=== PATIENT | female | born 1995 | race Caucasian/White ===

== ENCOUNTER 2016-09-06 15:07 | Emergency (ER) | payer OTHER, BC ==
[2016-09-06 15:15] VITALS: BP 128/84
--- NOTE | 2016-09-06 15:48 | UC ---
Hand/Wrist HPI - HPI Summary HPI Summary: Pt fell on stairs 2 nights ago, not sure if she smacked hand against railing, landed on it, or grabbed onto something. Now has bruising and swelling on hand over 4th and 5th knuckles. - History Of Current Complaint Chief Complaint: UCUpperExtremity Stated Complaint: HAND INJURY Time Seen by Provider: 09/06/16 15:22 Hx Obtained From: Patient Hx Last Menstrual Period: 2.5 months ?: No Onset/Duration: Sudden Onset Severity Initially: Moderate Severity Currently: Moderate Character Of Pain: Dull, Aching Aggravating Factor(s): Movement - Allergies/Home Medications Allergies/Adverse Reactions: Allergies Allergy/AdvReac Type Severity Reaction Status Date / Time No Known Allergies Allergy Verified 09/06/16 15:15 PMH/Surg Hx/FS Hx/Imm Hx Previously Healthy: Yes - Surgical History Surgical History: Yes Surgery Procedure, Year, and Place: Bilat ear tubes, Adenoids - Family History Known Family History: Negative: Blood Disorder - Social History Occupation: Employed Part-time, Student Alcohol Use: Rare Substance Use Type: None Smoking Status (MU): Heavy Every Day Tobacco Smoker Amount Used/How Often: 1 ppd Length of Time of Smoking/Using Tobacco: 2 years Review of Systems Constitutional: Negative Skin: Bruising Eyes: Negative ENT: Negative Respiratory: Negative Cardiovascular: Negative Gastrointestinal: Negative Genitourinary: Negative Motor: Negative Neurovascular: Negative Musculoskeletal: Arthralgia Neurological: Negative Psychological: Negative All Other Systems Reviewed And Are Negative: Yes Physical Exam Triage Information Reviewed: Yes Appearance: Well-Appearing, No Pain Distress, Well-Nourished Vital Signs: Initial Vital Signs Temp 98.6 F 09/06/16 15:10 Pulse 98 09/06/16 15:10 Resp 18 09/06/16 15:10 BP 128/84 09/06/16 15:10 Pulse Ox 100 09/06/16 15:10 Vital Signs Reviewed: Yes Eye Exam: Normal Eyes: Positive: Conjunctiva Clear ENT Exam: Normal ENT: Positive: Normal ENT inspection, Hearing grossly normal, Pharynx normal, TMs normal Dental Exam: Normal Neck exam: Normal Neck: Positive: Supple, Nontender, No Lymphadenopathy Respiratory Exam: Normal Respiratory: Positive: Chest non-tender, Lungs clear, Normal breath sounds, No respiratory distress, No accessory muscle use Cardiovascular Exam: Normal Cardiovascular: Positive: RRR, No Murmur Musculoskeletal: Positive: Strength Limited @ - R clean out driller, ROM Limited @ - R hand, Other: - tender over 4th and 5th MCs Neurological Exam: Normal Neurological: Positive: Alert Psychological Exam: Normal Hand/Wrist Course/Dx - Differential Dx/Diagnosis Provider Diagnoses: R hand contusion Discharge - Discharge Plan Condition: Stable Disposition: HOME Patient Education Materials: Contusion in Adults (ED) Referrals: Cristal Sanches MD [Primary Care Provider] - If Needed Additional Instructions: Use ice, ibuprofen, and elevation as needed for pain. If you still cannot use the hand after a week, please see your primary care office or return here for care.
--- NOTE | 2016-09-06 15:55 | RAD ---
INDICATION: Right hand injury COMPARISON: None TECHNIQUE: AP, lateral, and oblique views were obtained. FINDINGS: There is no acute fracture or dislocation. There is soft tissue swelling over the dorsum of the hand. IMPRESSION: NO ACUTE FRACTURE
== END 2016-09-06 15:55 | disposition home or self-care (01) ==
LOC: UCEAST 15:07
DX: S60.221A Contusion of right hand, initial encounter (principal); W10.9XXA Fall (on) (from) unspecified stairs and steps, initial encounter; Y93.9 Activity, unspecified; Y92.9 Unspecified place or not applicable; F17.210 Nicotine dependence, cigarettes, uncomplicated
CPT/HCPCS: 99211; G0463

== ENCOUNTER 2017-04-26 19:49 | Emergency (ER) | payer OTHER, BC ==
[2017-04-26 20:04] VITALS: BP 144/71
[2017-04-26] MEDS ORDERED: Benzonatate CAP* 100 MG PO ONE (20:19)
--- NOTE | 2017-04-26 20:23 | UC ---
Throat Pain/Nasal Augusto HPI - HPI Summary HPI Summary: pateint was treated for strep and wheezing about 3 weeks ago, today she presents with severe sore thraot, wheezing, fever and cough. - History of Current Complaint Chief Complaint: UCGeneralIllness Stated Complaint: THROAT COMPLAINT Time Seen by Provider: 04/26/17 20:06 Hx Obtained From: Patient Hx Last Menstrual Period: BCP-ASHLYNA--LMP ~ 6 MOS AGO. ?: No Onset/Duration: Sudden Onset, Lasting Days Severity: Mild Cough: Nonproductive Associated Signs & Symptoms: Positive: Dysphagia, Hoarseness, Sinus Discomfort, Nasal Discharge, Fever - Epiglottits Risk Factors Epiglottis Risk Factors: Negative - Allergies/Home Medications Allergies/Adverse Reactions: Allergies Allergy/AdvReac Type Severity Reaction Status Date / Time No Known Allergies Allergy Verified 04/26/17 20:04 Home Medications: Home Medications Dextromethorphan-Phenylephrine [Daytime Multi-Symptom Col 10-5-325 mg/15Ml] 1 liq PO DAILY PRN 04/26/17 [History Confirmed 04/26/17] Ibuprofen TAB* [Motrin TAB* 800 MG] 800 mg PO Q6H PRN 04/26/17 [History Confirmed 04/26/17] Xcyunnsoazegg-Mgeobpprrf-Wvwqf [Nyquil Severe Cold/Flu 5-6.25-10-325 mg/15Ml] 1 liq PO DAILY PRN 04/26/17 [History Confirmed 04/26/17] Throat Lozenges [Menthol Cough Drops] 5 mg MT DAILY PRN 04/26/17 [History Confirmed 04/26/17] PMH/Surg Hx/FS Hx/Imm Hx Previously Healthy: Yes - Surgical History Surgical History: Yes Surgery Procedure, Year, and Place: Bilat ear tubes, Adenoids - Family History Known Family History: Negative: Blood Disorder - Social History Alcohol Use: Rare Substance Use Type: None Smoking Status (MU): Heavy Every Day Tobacco Smoker Type: Cigarettes Amount Used/How Often: 1 ppd Length of Time of Smoking/Using Tobacco: 5 years Review of Systems Constitutional: Fever Skin: Negative Eyes: Negative ENT: Sore Throat, Ear Ache, Nasal Discharge, Sinus Congestion, Sinus Pain/ Tenderness Respiratory: Shortness Of Breath, Cough Cardiovascular: Negative Gastrointestinal: Negative Genitourinary: Negative Motor: Negative Neurovascular: Negative Musculoskeletal: Negative Neurological: Negative Psychological: Negative All Other Systems Reviewed And Are Negative: Yes Physical Exam Triage Information Reviewed: Yes Appearance: Ill-Appearing, Pain Distress, Obese Vital Signs: Initial Vital Signs Temp 100.7 F 04/26/17 19:55 Pulse 128 04/26/17 19:55 Resp 20 04/26/17 19:55 BP 144/71 04/26/17 19:55 Pulse Ox 100 04/26/17 19:55 Vital Signs Reviewed: Yes Eye Exam: Normal ENT: Positive: Pharyngeal erythema, Nasal congestion, TM dull, TM red, Tonsillar swelling, Tonsillar exudate Dental Exam: Normal Neck exam: Normal Neck: Positive: Enlarged Nodes @ - bilateral cervical Respiratory: Positive: Chest non-tender, No respiratory distress, No accessory muscle use, Wheezing, Inspiration Cardiovascular Exam: Normal Cardiovascular: Positive: No Murmur, Pulses Normal, Tachycardia Abdominal Exam: Normal Abdomen Description: Positive: Nontender, No Organomegaly, Soft Bowel Sounds: Positive: Present Musculoskeletal Exam: Normal Neurological Exam: Normal Psychological Exam: Normal Skin Exam: Normal Throat Pain/Nasal Course/Dx - Course Course Of Treatment: hx obtained, exam performed ,meds reviewed, rapid strep obtained, - Differential Dx/Diagnosis Differential Diagnosis/HQI/PQRI: Laryngitis, Otitis Media, Pharyngitis, Sinusitis, Tonsillitis, URI Provider Diagnoses: pharynigitis. sinusitis Discharge - Discharge Plan Condition: Stable Disposition: HOME Prescriptions: Albuterol HFA INHALER* [Ventolin HFA Inhaler*] 2 puff INH Q4H PRN #1 mdi PRN Reason: Wheezing Cephalexin CAP* [Keflex CAP*] 500 mg PO BID #13 cap predniSONE TAB* [Deltasone TAB*] 40 mg PO DAILY #10 tab Patient Education Materials: Sinusitis (ED) Forms: *Work Release Referrals: Cristal Sanches MD [Primary Care Provider] -
[2017-04-26] MEDS ORDERED: Cephalexin CAP* 500 MG PO ONE (20:27)
== END 2017-04-26 20:37 | disposition home or self-care (01) ==
LOC: UCCORT 19:49
DX: J02.9 Acute pharyngitis, unspecified (principal); J32.9 Chronic sinusitis, unspecified
CPT/HCPCS: 87651; 99212; A9270-GY; G0463

== ENCOUNTER 2020-11-12 13:21 | Inpatient (IN) ==
[2020-11-12] MEDS ORDERED: Buffered Lidocaine 1% SYRIN 1 ml INTRADERM ONE (14:30)
[2020-11-12] MEDS ORDERED: Lactated Ringers 1000 ml BAG 1,000 ML IV ONE ×2 (14:30→22:52)
[2020-11-12] MEDS ORDERED: Oxytocin in LR 20 UNITS/1,000 ML BAG IVPB SCH (15:00)
[2020-11-12] MEDS ORDERED: Lactated Ringers 1000 ml BAG 1,000 ML IV SCH ×3 (15:00→23:00)
[2020-11-12 15:18] LABS: ABS Eosinophils 0.1 10^3/ul (0-0.6); ABS Lymphocytes 1.9 10^3/ul (1.0-4.8); ABS Monocytes 0.7 10^3/ul (0-0.8); ABS Neutrophils 10.6 10^3/ul (1.5-7.7); Hematocrit 38 % (35-47); Hemoglobin 13.2 g/dL (12.0-16.0); Mean Corpuscular HGB Conc 35 g/dL (31-36); Mean Corpuscular Hemoglobin 30 pg (27-31); Mean Corpuscular Volume 85 fL (80-97); Mean Platelet Volume 8.7 fL (7.4-10.4); Platelet Count 426 10^3/uL (150-450); Red Blood Count 4.44 10^6 /uL (3.70-4.87); Red Cell Distribution Width 14 % (10-15); White Blood Count 13.3 10^3/uL (3.5-10.8)
[2020-11-12 15:55] LABS: Urine Benzodiazepine Screen None Detected (None Detect); Urine Cannabinoids Screen None Detected (None Detect); Urine Opiates Screen None Detected (None Detect)
[2020-11-12] MEDS ORDERED: Lactated Ringers 1000 ml BAG 500 ML IV PRN ×2 (22:52)
[2020-11-12] MEDS ORDERED: Sodium Citrate/Citric Acid LIQ 15 ML UDC PO PRN (22:52)
[2020-11-12] MEDS ORDERED: Phenylephrine 40 mcg/mL 10mL (400mcg) SYRINGE IV PUSH PRN ×2 (22:52)
[2020-11-13] MEDS ORDERED: Bupivacaine 0.25% SDV PF 10 ML VIAL INJ ONE ×2 (09:35→12:41)
[2020-11-13] MEDS ORDERED: ceFOXitin 2 GM IVPREMIX 2 GM/50 ML BAG ONE (16:08)
[2020-11-13] MEDS ORDERED: ceFOXitin 2 GM IVPREMIX 2 GM/50 ML BAG IVPB ONE (16:09)
[2020-11-13] MEDS ORDERED: Oxytocin 10 UNITS/ML 1 ML VIAL ONE (16:54)
[2020-11-13] MEDS ORDERED: Morphine PF AMP (0.5MG/ML) 5 MG/10 ML AMP ONE (16:54)
[2020-11-13] MEDS ORDERED: Bupivacaine 0.5% SDV PF 30ML VIAL ONE (16:55)
[2020-11-13] MEDS ORDERED: Sodium Citrate/Citric Acid LIQ 15 ML UDC PO ONE (17:47)
[2020-11-13] MEDS ORDERED: fentaNYL 100 mcg/2 ml 50 MCG/ML VIAL IV PRN (17:48)
[2020-11-13] MEDS ORDERED: Naloxone 0.4 mg VIAL 0.4 mg/ml 1 ml VIAL IV PRN ×2 (17:48→18:01)
[2020-11-13] MEDS ORDERED: Ondansetron 4 mg VIAL 2 MG/ML 2 ml VIAL ONE (17:57)
[2020-11-13] MEDS ORDERED: Lactated Ringers 1000 ml BAG 1,000 ML IV SCH ×2 (18:00→19:00)
[2020-11-13] MEDS ORDERED: HYDROcodone/ACETAMIN 5/325 mg TAB PO PRN (18:01)
[2020-11-13] MEDS ORDERED: DiMENhydriNATE IV 50 mg/ml 1 ml VIAL IV PUSH PRN (18:01)
[2020-11-13] MEDS ORDERED: Ondansetron 4 mg VIAL 2 MG/ML 2 ml VIAL IV PRN (18:01)
[2020-11-13] MEDS ORDERED: diPHENhydraMINE IV 50 MG/ML 1 ml VIAL (BENADRYL) IV PRN (18:01)
[2020-11-13] MEDS ORDERED: Dibucaine 1% OINT 28.35 GM TUBE PR PRN (18:12)
[2020-11-13] MEDS ORDERED: Measles, Mumps,Rubella VACC 0.5 ML/VIAL SUBCUT ONE (18:12)
[2020-11-13] MEDS ORDERED: Witch Hazel PAD JAR TOPICAL PRN (18:12)
[2020-11-13] MEDS ORDERED: Glycerin ADULT 2.4 gm SUPP PR PRN (18:12)
[2020-11-13] MEDS ORDERED: Oxytocin in LR 20 UNITS/1,000 ML BAG IVPB SCH (19:00)
[2020-11-14 00:47] LABS: Urine Appearance Clear; Urine Bilirubin Negative (Negative); Urine Blood 1+ (Negative); Urine Color Straw; Urine Glucose Negative (Negative); Urine Ketones Negative (Negative); Urine Nitrite Negative (Negative); Urine Protein Negative (Negative); Urine Specific Gravity 1.001 (1.010-1.030); Urine Urobilinogen Negative (Negative)
[2020-11-14 00:51] LABS: Urine Bacteria Absent (Absent); Urine Red Blood Cell Trace(0-2/hpf) (Absent); Urine Squamous Epithelial Cell Present (Absent); Urine White Blood Cell Absent (Absent)
[2020-11-14 06:36] LABS: ABS Eosinophils 0.1 10^3/ul (0-0.6); ABS Lymphocytes 1.9 10^3/ul (1.0-4.8); ABS Monocytes 1.2 10^3/ul (0-0.8); ABS Neutrophils 14.6 10^3/ul (1.5-7.7); Eosinophil % 0.6 %; Hematocrit 27 % (35-47); Hemoglobin 9.3 g/dL (12.0-16.0); Lymphocyte % 10.6 %; Mean Corpuscular HGB Conc 34 g/dL (31-36); Mean Corpuscular Hemoglobin 29 pg (27-31); Mean Corpuscular Volume 85 fL (80-97); Mean Platelet Volume 7.8 fL (7.4-10.4); Platelet Count 302 10^3/uL (150-450); Red Blood Count 3.18 10^6 /uL (3.70-4.87); Red Cell Distribution Width 14 % (10-15); White Blood Count 17.9 10^3/uL (3.5-10.8)
[2020-11-14] MEDS: OBEPIDURAL 250 ML EPIDURAL SCH (07:42)
[2020-11-14] MEDS ORDERED: RHO D Immune Globulin (HUMAN) 300 MCG = 1,500 I.U. INJ IM ONE (09:44)
[2020-11-14] MEDS ORDERED: Measles, Mumps,Rubella VACC 0.5 ML/VIAL ONE (15:37)
[2020-11-15 08:10] VITALS: BP 124/73
== END 2020-11-15 14:20 | disposition home or self-care (01) | DRG 788 ==
LOC: MCHOBOUT 13:21 → MCHOB 14:20
PROVIDERS: ADMIT Obstetrics & Gynecology; ATTEND Obstetrics & Gynecology